=== PATIENT | female | born 1965 | race Caucasian/White ===

== ENCOUNTER 2018-05-09 10:12 | Day surgery (SDC) | payer OTHER ==
[2018-04-30 10:47] VITALS: BP 135/86
[~2018-05-09] VITALS: Ht 162.6 cm; Wt 120.6 kg
[~2018-05-09 10:12] MED LIST: BIOTIN PO; BUPIVACAINE/PF-EPI 0.5% 1:200K ONE; CAL1TABL10 PO; CBD; FISH OIL PO; GELA600C PO; GLUC-149 PO; LOSA25TA6 PO; MAGN400T36 PO; POTASSIUM PO; PROM25TA10 PO; TRAZ50TA66 PO
[2018-05-09] MEDS ORDERED: LACTATED RINGERS 1,000 ML IV SCH (11:35)
[2018-05-09] MEDS ORDERED: ESOM40SU PO (11:57)
[2018-05-09] MEDS ORDERED: FENTANYL PF 250 MCG/5ML ONE (13:10)
[2018-05-09] MEDS ORDERED: MIDAZOLAM 1 MG/ML, 2ML ONE (13:10)
[2018-05-09] MEDS ORDERED: ONDANSETRON 2MG/ML, 2ML ONE (13:56)
[2018-05-09] MEDS ORDERED: SUCCINYLCHOLINE 20 MG/ML, 10ML ONE (13:56)
[2018-05-09] MEDS ORDERED: PROPOFOL 10 MG/ML, 20ML ONE (13:56)
[2018-05-09] MEDS ORDERED: DEXAMETHASONE 4 MG/ML, 1ML ONE (13:56)
[2018-05-09] MEDS ORDERED: CEFAZOLIN 1,000 MG ONE (13:56)
[2018-05-09] MEDS ORDERED: GLYCOPYRROLATE 0.2MG/1ML, 5ML ONE (13:56)
[2018-05-09] MEDS ORDERED: ROCURONIUM 10 MG/ML,10ML ONE (13:56)
[2018-05-09] MEDS ORDERED: NEOSTIGMINE 1 MG/ML, 10ML ONE (13:56)
[2018-05-09] MEDS ORDERED: PROMETHAZINE 12.5 MG SUPP PR PRN (14:30)
[2018-05-09] MEDS ORDERED: FENTANYL PF 100 MCG/2ML IV PRN (14:30)
[2018-05-09] MEDS ORDERED: ONDANSETRON ODT 8 MG PO PRN (14:30)
[2018-05-09] MEDS ORDERED: hydrALAzine 20 MG/ML, 1ML IV PRN (14:30)
[2018-05-09] MEDS ORDERED: LABETALOL 5MG/ML, 20ML IV PRN (14:30)
[2018-05-09] MEDS ORDERED: ONDANSETRON 2MG/ML, 2ML IV PRN (14:30)
[2018-05-09] MEDS ORDERED: OXYcodone 5 MG/5 ML ORAL.SOL UDC PO PRN (14:30)
[2018-05-09] MEDS ORDERED: HYDROmorphone 1 MG/ML, 1ML IV PRN (14:30)
[2018-05-09] MEDS ORDERED: OXYcodone 5 MG/5 ML ORAL.SOL UDC ONE (15:40)
[2018-05-09] MEDS ORDERED: FENTANYL PF 100 MCG/2ML ONE (15:40)
== END 2018-05-09 18:00 | disposition home or self-care (01) ==
LOC: OUT 10:12 → EDSTATUS 13:30 → OUT 18:00
PROVIDERS: ATTEND Surgery
DX: C43.71 Malignant melanoma of right lower limb, including hip (principal); R59.1 Generalized enlarged lymph nodes; E78.00 Pure hypercholesterolemia, unspecified; Z98.890 Other specified postprocedural states; Z90.49 Acquired absence of other specified parts of digestive tract; Z90.710 Acquired absence of both cervix and uterus; Z79.899 Other long term (current) drug therapy; Z72.89 Other problems related to lifestyle; Z87.891 Personal history of nicotine dependence
CPT/HCPCS: 27616; 38500; 78195; 88305; A9541; C9898; J0330; J0690; J1100; J2250; J2405; J2704; J2710; J3010; J3490; J7120

== ENCOUNTER → 2020-04-19 | Outpatient (CLI) | payer OTHER ==
[~2020-04-19] MED LIST changes: -BUPIVACAINE/PF-EPI 0.5% 1:200K ONE; +ESOM40SU PO; +LOSA25TA25 PO; -LOSA25TA6 PO; +OMNIPAQUE 350 MG/ML, 100ML BOTTLE ONE
== END | disposition home or self-care (01) ==
LOC: CFH 12:19
PROVIDERS: ATTEND Nurse Practitioner Family
DX: R10.32 Left lower quadrant pain (principal)
CPT/HCPCS: 74177; 82565; Q9967